=== PATIENT | male | born 1955 | race Caucasian/White ===

== ENCOUNTER 2023-07-19 14:15 | Emergency (ER) | payer MEDICARE ==
[2023-07-19 14:22] VITALS: BP 134/72
[2023-07-19 14:31] VITALS: BP 121/58
[2023-07-19 14:46] VITALS: BP 127/81
[2023-07-19] MEDS ORDERED: BENZONATATE200 MG PO (14:51)
[2023-07-19] MEDS ORDERED: ZPAK PO (14:51)
[2023-07-19 14:57] VITALS: BP 127/81
== END 2023-07-19 15:27 | disposition home or self-care (01) ==
LOC: ED 14:15
DX: J06.9 Acute upper respiratory infection, unspecified (principal); I10 Essential (primary) hypertension; M10.9 Gout, unspecified